=== PATIENT | male | born 1970 | race Caucasian/White ===

== ENCOUNTER 2018-11-12 05:28 | Observation (INO) | payer OTHER ==
[2018-11-12] MEDS ORDERED: PROPOFOL 20 ML (07:14)
[2018-11-12] MEDS ORDERED: PROPOFOL 100 ML ×2 (07:14→10:34)
[2018-11-12] MEDS ORDERED: LIDOCAINE 100 MG SYRINGE (07:14)
[2018-11-12] MEDS ORDERED: SUCCINYLCHOLINE CHLORIDE 100 MG/5 ML SYG IV (07:14)
[2018-11-12] MEDS ORDERED: MIDAZOLAM 1 MG/ML 2 ML INJ (07:15)
[2018-11-12] MEDS ORDERED: VASOPRESSIN 20 UNITS INJ (07:39)
[2018-11-12] MEDS ORDERED: DEXAMETHASONE 4 MG/ML 5 ML INJ (08:07)
[2018-11-12] MEDS ORDERED: CEFAZOLIN 1 GM INJ (08:07)
[2018-11-12] MEDS ORDERED: ONDANSETRON 4 MG INJ (08:07)
[2018-11-12] MEDS: GELATIN SIZE 100 SPONGE ×2 (08:30→10:22)
[2018-11-12] MEDS: THROMBIN 5000 UNIT VIAL (08:30)
[2018-11-12] MEDS: BUPIVACAINE 0.25%/EPI (SDV) 30 ML INJ (08:30)
[2018-11-12] MEDS: POLYMYXIN/BACITRACIN 1L IRRIG (08:30)
[2018-11-12] MEDS: HEMOSTATIC MATRIX/ THROMBIN 1 EA SYG ZFS (08:30)
[2018-11-12] MEDS ORDERED: PHENYLephrine (100 MCG/ML) 10ML SYG (08:45)
[2018-11-12] MEDS ORDERED: EPHEDrine 25 MG/5 ML SYG (08:45)
[2018-11-12] MEDS ORDERED: PHENYLephrine 10 MG INJ (08:46)
[2018-11-12] MEDS ORDERED: HYDROmorphONE 1 MG/5 ML IV SYRINGE IV ×2 (09:00)
[2018-11-12] MEDS ORDERED: ONDANSETRON 4 MG INJ IV ×2 (09:00→11:30)
[2018-11-12] MEDS ORDERED: LABETALOL HCL 20MG INJ IV (09:00)
[2018-11-12] MEDS ORDERED: hydrALAzine 20 MG INJ IV (09:00)
[2018-11-12] MEDS ORDERED: MEPERIDINE 25 MG INJ IV (09:00)
[2018-11-12] MEDS ORDERED: KETOROLAC 15 MG INJ IV (09:00)
[2018-11-12] MEDS ORDERED: ROCURONIUM 50 MG INJ (10:34)
[2018-11-12] MEDS ORDERED: SUGAMMADEX SODIUM 200 MG/2 ML VIAL IV (10:38)
[2018-11-12] MEDS ORDERED: AL HYDROX/MG HYDROX/SIMETH 30 ML CUP PO (11:30)
[2018-11-12] MEDS ORDERED: HYDROCODONE/APAP (5/325) TAB PO ×2 (11:30)
[2018-11-12] MEDS ORDERED: NACL 0.9% 3 ML SYG IV (11:30)
[2018-11-12] MEDS ORDERED: PROCHLORPERAZINE 10 MG TAB PO (11:30)
[2018-11-12] MEDS ORDERED: ACETAMINOPHEN 325 MG TAB PO (11:30)
[2018-11-12] MEDS ORDERED: NALOXONE (0.4 MG/ML) INJ IV (11:30)
[2018-11-12] MEDS: HYDROmorphONE 1 MG/5 ML IV SYRINGE IV (11:41)
[2018-11-12] MEDS: DIPHENHYDRAMINE 50 MG INJ IV (11:41)
[2018-11-12] MEDS: ALBUMIN HUMAN 5% 250 ML IV (12:00)
[2018-11-12] MEDS: EPHEDrine 25 MG/5 ML SYG IV (12:01)
[2018-11-12] MEDS: HYDROmorphONE 0.5 MG/0.5 ML SYG IV ×2 (13:09→20:15)
[2018-11-12] MEDS: CEFAZOLIN 1 GM/50 ML (PMX) 50 ML IVPB ×2 (13:09→18:27)
[2018-11-12] MEDS: ACCU-CHEK XX ×2 (17:42→21:30)
[2018-11-13] MEDS: CEFAZOLIN 1 GM/50 ML (PMX) 50 ML IVPB ×2 (00:42→05:36)
[2018-11-13 05:20] LABS: HEMATOCRIT 46.1 % (42.0-52.0); HEMOGLOBIN 15.1 g/dl (14.0-18.0)
[2018-11-13 05:45] LABS: ANION GAP 11 (5-13); BLOOD UREA NITROGEN 15 mg/dl (7-20); CALCIUM 9.1 mg/dl (8.4-10.2); CARBON DIOXIDE 27 mmol/L (21-31); CHLORIDE 104 mmol/L (97-110); CREATININE 0.98 mg/dl (0.61-1.24); Estimated GFR > 60 mL/min (>60); GLUCOSE 120 mg/dl (70-220); POTASSIUM 4.2 mmol/L (3.5-5.1); SODIUM 142 mmol/L (135-144)
[2018-11-13 06:12] LABS: HEPATITIS B SURFACE ANTIGEN NEGATIVE (NEGATIVE)
[2018-11-13 06:29] LABS: HEPATITIS B SURFACE ANTIBODY NEGATIVE (NEGATIVE)
[2018-11-13 06:29] LABS: HEPATITIS C VIRAL ANTIBODY NEGATIVE (NEGATIVE)
[2018-11-13] MEDS: HYDROmorphONE 0.5 MG/0.5 ML SYG IV ×2 (07:23→12:33)
[2018-11-13] MEDS: ACCU-CHEK XX ×3 (08:20→12:45)
[2018-11-13] MEDS: AMLODIPINE 10 MG TAB PO (08:30)
[2018-11-13] MEDS: BENAZEPRIL 40 MG TAB PO (08:30)
[2018-11-13] MEDS: DOCUSATE SODIUM 100 MG CAP PO (08:31)
== END 2018-11-13 14:36 | disposition home or self-care (01) ==
LOC: SDS 05:28 → REC 11:07 → MS1 12:41
PROVIDERS: Orthopaedic Surgery
DX: M48.07 Spinal stenosis, lumbosacral region (principal); M51.17 Intervertebral disc disorders with radiculopathy, lumbosacral region; E66.01 Morbid (severe) obesity due to excess calories; Z68.41 Body mass index [BMI] 40.0-44.9, adult; I10 Essential (primary) hypertension; G47.33 Obstructive sleep apnea (adult) (pediatric)
CPT/HCPCS: 63030; 72100; 80048; 82962; 85014; 85018; 86706; 86708; 86803; 87340; 88304; 97110; 97116; 97162; 97530; 99217